=== PATIENT | female | born 1950 | race Two or more races ===

== ENCOUNTER 2017-11-22 07:42 | Outpatient (CLI) | payer OTHER | END 2017-11-22 08:02 | disposition home or self-care (01) | LOC: LAB 07:42 | DX: E03.8 Other specified hypothyroidism (principal); E04.1 Nontoxic single thyroid nodule; E55.9 Vitamin D deficiency, unspecified; D64.9 Anemia, unspecified; Z12.11 Encounter for screening for malignant neoplasm of colon ==

== ENCOUNTER 2017-11-22 08:51 | Outpatient (CLI) | payer OTHER | END 2017-11-22 08:53 | disposition home or self-care (01) | LOC: SONOGRAMA 08:51 | DX: E04.1 Nontoxic single thyroid nodule (principal) ==

== ENCOUNTER 2017-11-26 10:22 | Outpatient (CLI) | payer OTHER | END 2017-11-26 10:27 | disposition home or self-care (01) | LOC: RX STUDY 10:22 | DX: R13.10 Dysphagia, unspecified (principal) ==

== ENCOUNTER 2017-12-10 08:48 | Outpatient (CLI) | payer OTHER | END 2017-12-10 08:58 | disposition home or self-care (01) | LOC: LAB 08:48 | DX: E21.3 Hyperparathyroidism, unspecified (principal); E88.89 Other specified metabolic disorders; M81.8 Other osteoporosis without current pathological fracture; E83.42 Hypomagnesemia; E56.1 Deficiency of vitamin K; E03.8 Other specified hypothyroidism ==

== ENCOUNTER 2017-12-10 09:44 | Outpatient (CLI) | payer OTHER | END 2017-12-10 10:08 | disposition home or self-care (01) | LOC: RAD 501 09:44 | DX: M25.552 Pain in left hip (principal); M54.5 Low back pain ==

== ENCOUNTER → 2018-12-24 | Outpatient (CLI) | payer OTHER | END | disposition home or self-care (01) | LOC: RAD 501 15:03 | DX: M25.562 Pain in left knee (principal); M79.642 Pain in left hand; M79.632 Pain in left forearm ==

== ENCOUNTER 2018-12-25 11:29 | Outpatient (CLI) | payer OTHER | END 2018-12-25 15:24 | disposition home or self-care (01) | LOC: RAD 11:29 | DX: S82.035A Nondisplaced transverse fracture of left patella, initial encounter for closed fracture (principal); M23.92 Unspecified internal derangement of left knee; S52.125A Nondisplaced fracture of head of left radius, initial encounter for closed fracture; S62.631A Displaced fracture of distal phalanx of left index finger, initial encounter for closed fracture | CPT/HCPCS: 73721 ==

== ENCOUNTER 2022-07-16 05:20 | Day surgery (SDC) | payer OTHER ==
[~2022-07-16] VITALS: Ht 162.6 cm; Wt 61.2 kg
[~2022-07-16 05:20] MED LIST: ALPRAZOLAM OD0.25 MG PO; COSOPT PF EYE1 EACH OP; D3 + K2 DOTS 11 EACH PO; DICLOFENAC-MIS1 EAC1 PO; LEVOTHYROXINE25 MCG PO; MEDROL2 MG PO; OCUVITE LUTEIN1 EAC1 PO; ZANAFLEX2 M1 PO; ZOLPIDEM TART1.75 MG SL
== END 2022-07-16 14:55 | disposition home or self-care (01) ==
LOC: CIR.AMB 05:20
PROVIDERS: ATTEND Obstetrics & Gynecology
DX: N85.8 Other specified noninflammatory disorders of uterus (principal)